=== PATIENT | female | born 1985 | race Caucasian/White ===

== ENCOUNTER 2018-05-14 18:22 | Emergency (ER) | payer MEDICAID ==
[~2018-05-14] VITALS: Ht 160 cm; Wt 88.9 kg
[2018-05-14 18:33] VITALS: BP 114/71
[2018-05-14] MEDS ORDERED: KETOROLAC 30 MG/ML VIAL IM ONE (20:00)
[2018-05-14] MEDS ORDERED: HYDROcodone/APAP 5/325 MG 1 TAB TAB PO ONE (20:40)
[2018-05-14] MEDS ORDERED: LIDOCAINE MPF 1% 5mL VIAL INJ ONE (20:45)
[2018-05-14] MEDS ORDERED: LIDOCAINE MPF 1% - 5 mL VIAL 5 ML ONE (20:47)
[2018-05-14 22:12] VITALS: BP 114/73
== END 2018-05-14 22:16 | disposition home or self-care (01) ==
LOC: MED 18:22
DX: S93.114A Dislocation of interphalangeal joint of right lesser toe(s), initial encounter (principal); W51.XXXA Accidental striking against or bumped into by another person, initial encounter; Y93.89 Activity, other specified; Y92.89 Other specified places as the place of occurrence of the external cause; Y99.8 Other external cause status
CPT/HCPCS: 28660; 73660; 96372; 99284; J1885; J2001; Q0092

== ENCOUNTER 2018-08-07 10:14 | Emergency (ER) | payer MEDICAID ==
[~2018-08-07] VITALS: Ht 160 cm; Wt 95.9 kg
[2018-08-07 10:26] VITALS: BP 108/69
[2018-08-07] MEDS ORDERED: NACL 0.9% 1,000 ML IV ONE (10:55)
[2018-08-07 11:00] LABS: BASOPHILS # (AUTO) 0.1 K/uL (0.00-0.22); BASOPHILS % (AUTO) 0.5 % (0.0-2.0); EOSINOPHILS # (AUTO) 0.2 K/uL (0-0.4); EOSINOPHILS % (AUTO) 1.5 % (0.0-4.0); HEMATOCRIT 33.2 % (36-48); HEMOGLOBIN 10.6 g/dL (12.0-16.0); LYMPHOCYTES # (AUTO) 3.3 K/uL (2.5-16.5); LYMPHOCYTES % (AUTO) 27.1 % (20.5-51.1); MEAN CORPUSCULAR HEMOGLOBIN 25 pg (27-31); MEAN CORPUSCULAR HGB CONC 32 g/dL (33-37); MEAN CORPUSCULAR VOLUME 79.2 fL (80-94); MONOCYTES # (AUTO) 0.7 K/uL (0.8-1.0); MONOCYTES % (AUTO) 6.2 % (1.7-9.3); NEUTROPHILS # (AUTO) 7.8 K/uL (1.8-7.7); NEUTROPHILS % (AUTO) 64.7 % (42.2-75.2); PLATELET COUNT (AUTO) 432 K/uL (140-450); RED BLOOD CELL COUNT(AUTO) 4.19 MIL/uL (4.20-5.40); RED CELL DISTRIBUTION WIDTH 14.9 % (11.6-13.7)
[2018-08-07 11:25] LABS: ALBUMIN 3.4 g/dL (3.4-5.0); ANION GAP 12.5 (8-16); CARBON DIOXIDE 25.1 mmol/L (21-32); CREATININE 0.6 mg/dL (0.6-1.3); POTASSIUM 3.6 mmol/L (3.5-5.1); TOTAL BILIRUBIN 0.4 mg/dL (0.0-1.0)
[2018-08-07 12:57] VITALS: BP 114/71
== END 2018-08-07 12:57 | disposition home or self-care (01) ==
LOC: MED 10:14
DX: T62.8X1A Toxic effect of other specified noxious substances eaten as food, accidental (unintentional), initial encounter (principal); Y92.89 Other specified places as the place of occurrence of the external cause
CPT/HCPCS: 36415; 80053; 85025; 96360; 99284; J7030

== ENCOUNTER 2019-01-15 10:34 | Emergency (ER) | payer MEDICAID, OTHER ==
[~2019-01-15] VITALS: Ht 160 cm; Wt 98.5 kg
--- NOTE | 2019-01-15 10:40 | NUR ---
Patient ambulated to bed 5. RN evaluating patient at bedside.
[2019-01-15 10:43] VITALS: BP 134/76
[2019-01-15] MEDS ORDERED: ACET-2619 PO (10:47)
--- NOTE | 2019-01-15 10:47 | NUR ---
33 Y FEMALE BIB FAMILY C/O SORE THROAT, RUNNY NOSE, CONGESTION, NON-PRODUCTIVE COUGH, HEADACHE. PAIN 10/10. +REDNESS, -SWELLING IN THROAT. DENIES FEVER. PER PT, FLU-LIKE SYMPTOMS STARTED LAST NIGHT. BED IS DOWN, LOCKED, BED RAIL X 1, ERMD NOTIFIED. HX-NONE MED-TYLENOL
--- NOTE | 2019-01-15 10:49 | NUR ---
UNABLE TO COLLECT A URINE AT THIS TIME
--- NOTE | 2019-01-15 11:05 | NUR ---
Dr. Martino evaluating patient at bedside.
[2019-01-15] MEDS ORDERED: KETOROLAC 60 MG/2 ML VIAL IM ONE (11:10)
[2019-01-15] MEDS ORDERED: CLINDAMYCIN 600 MG/4 ML VIAL IM ONE (11:10)
[2019-01-15] MEDS ORDERED: DEXAMETHASONE 10 MG/ML VIAL IM ONE (11:10)
[2019-01-15 13:00] VITALS: BP 134/76
--- NOTE | 2019-01-15 13:10 | NUR ---
PT LEFT WITHOUT DISCHARGE INSTRUCTIONS
--- NOTE | 2019-01-15 13:16 | NUR ---
DISCHARGE COMPLETED BY RODOLFO DELVALLE
--- NOTE | 2019-01-15 13:16 | NUR ---
Patient discharged with v/s stable. Written and verbal after care instructions given and explained. Patient verbalized understanding. Ambulatory with steady gait. All questions addressed prior to discharge. Advised to follow up with PMD.
== END 2019-01-15 13:16 | disposition home or self-care (01) ==
LOC: MED 10:34
DX: J03.90 Acute tonsillitis, unspecified (principal); Z79.899 Other long term (current) drug therapy
CPT/HCPCS: 81025; 96372; 99283; J1100; J1885; J3490

== ENCOUNTER 2019-04-08 08:58 | Emergency (ER) | payer OTHER ==
[~2019-04-08] VITALS: Ht 160 cm; Wt 88.5 kg
[~2019-04-08 08:58] MED LIST: ACET-2619 PO
[2019-04-08 09:00] VITALS: BP 117/64
--- NOTE | 2019-04-08 09:00 | NUR ---
to bed # 09 ambulatory
--- NOTE | 2019-04-08 09:00 | NUR ---
BIB SELF. AAO X4 RIGHT 5TH TOE PAIN AND SWELLING S/P ACCIDENTALLY KICKED BY WHILE SLEEPING X 30 MINS AGO. PT STATES 5/10 PAIN. PT STATES HX OF FRACTURE TO RIGHT 5TH TOE. +CMS NOTED. STEADY GAIT. HOB UP. BED SIDE RAILS UP X1. ON LOW BED POSITION,LOCKED. ER TO EVALUATE PT.
--- NOTE | 2019-04-08 09:30 | NUR ---
DR MCDANIEL AT BEDSIDE FOR PT EVAL
[2019-04-08 09:49] VITALS: BP 115/66
== END 2019-04-08 09:49 | disposition home or self-care (01) ==
LOC: MED 08:58
DX: S90.121A Contusion of right lesser toe(s) without damage to nail, initial encounter (principal); Z79.899 Other long term (current) drug therapy; W50.1XXA Accidental kick by another person, initial encounter; Y93.89 Activity, other specified; Y92.89 Other specified places as the place of occurrence of the external cause; Y99.8 Other external cause status
CPT/HCPCS: 99283

== ENCOUNTER 2019-04-19 08:29 | Emergency (ER) | payer OTHER ==
[~2019-04-19] VITALS: Ht 160 cm; Wt 96.2 kg
[2019-04-19 08:35] VITALS: BP 115/69
--- NOTE | 2019-04-19 08:40 | NUR ---
PT AMBULATE TO ER BED 04
--- NOTE | 2019-04-19 08:47 | NUR ---
PT BIB SELF C/O BODY ACHES, SORE THROAT, N/V, AND FEVER X 2 DAYS. ABD IS ROUND, SOFT, NON TENDER, ACTIVE BS X4, NO VOMITING NOTED SINCE ARRIVAL IN ER. RR EVEN AND UNLABORED, BL BS CLEAR THROUGHOUT. PT LAYING IN BED, POSITIONED TO COMFORT.
[2019-04-19 08:56] LABS: APPEARANCE,URINE SL CLOUDY (CLEAR); BILIRUBIN,URINE 1+ (NEGATIVE); BLOOD, URINE 3+ (NEGATIVE); COLOR,URINE YELLOW (YELLOW); LEUKOCYTE ESTERASE ,URINE NEGATIVE (NEGATIVE); NITRITE, URINE NEGATIVE (NEGATIVE); PH,URINE 8.5 (5.0-9.0); UGLUCOSE NEGATIVE (NEGATIVE)
[2019-04-19] MEDS ORDERED: PROMETHAZINE 25 MG/ML VIAL IM ONE (09:00)
[2019-04-19] MEDS ORDERED: hydrOXYzine HCL 25 MG TAB PO ONE (09:00)
[2019-04-19] MEDS ORDERED: KETOROLAC 60 MG/2 ML VIAL IM ONE (09:00)
[2019-04-19 09:02] LABS: BARBITURATE, URINE NEG. ng/ml (NEG <=200); BENZODIAZEPINE, URINE NEG. ng/mL (NEG <=200); CANNABINOID, URINE POS. ng/mL (NEG <=50); COCAINE, URINE NEG. ng/mL (NEG <=300); OPIATE, URINE NEG. ng/mL (NEG <=2000); PHENCYCLIDINE SCREEN,URINE NEG. ng/mL (NEG <=25)
[2019-04-19 09:09] LABS: RBC,URINE TOO NUMEROUS TO COUN /HPF (0-5)
--- NOTE | 2019-04-19 09:12 | NUR ---
Received report from MOOK Galvan. Will resume care at this time.
--- NOTE | 2019-04-19 09:46 | NUR ---
Patient is resting in bed. Vital Signs within normal limits. Respirations even and unlabored.
[2019-04-19] MEDS ORDERED: cefTRIAXone 1,000 MG in LIDOCAINE 1% ***ER ONLY *** 2.1 ML IM ONE (10:35)
[2019-04-19] MEDS ORDERED: cefTRIAXone 1,000 MG VIAL ONE (11:02)
[2019-04-19] MEDS ORDERED: LIDOCAINE MPF 1% - 5 mL VIAL 5 ML ONE (11:03)
[2019-04-19 13:19] VITALS: BP 112/66
--- NOTE | 2019-04-19 13:20 | NUR ---
Patient discharged with v/s stable. Written and verbal after care instructions given and explained. Patient alert, oriented and verbalized understanding of instructions. Ambulatory with steady gait. All questions addressed prior to discharge. ID band removed. Patient advised to follow up with PMD. Rx of Levaquin and Compazine given. Patient educated on indication of medication including possible reaction and side effects. Opportunity to ask questions provided and answered.
== END 2019-04-19 13:20 | disposition home or self-care (01) ==
LOC: MED 08:29
DX: N39.0 Urinary tract infection, site not specified (principal); Z79.899 Other long term (current) drug therapy
CPT/HCPCS: 80305; 81001; 81025; 87086; 96372; 99283; J0696; J1885; J2001; J2550

== ENCOUNTER 2019-10-09 13:45 | Emergency (ER) | payer OTHER ==
[~2019-10-09] VITALS: Ht 160 cm; Wt 87.3 kg
[2019-10-09 13:51] VITALS: BP 111/71
[2019-10-09] MEDS ORDERED: ACETAMINOPHEN EXTRA STRENGTH 500 MG TAB PO ONE (13:55)
--- NOTE | 2019-10-09 13:57 | NUR ---
PT TO BED 5 WITH STEADY GAIT
[2019-10-09] MEDS ORDERED: NACL 0.9% 1,000 ML IV SCH (14:08)
[2019-10-09] MEDS ORDERED: KETOROLAC 15 MG/ML VIAL IVP ONE (14:10)
[2019-10-09] MEDS ORDERED: DEXAMETHASONE 10 MG/ML VIAL IVP ONE (14:10)
--- NOTE | 2019-10-09 14:30 | NUR ---
INFLUENZA AND STREP SWABS COLLECTED
[2019-10-09] MEDS ORDERED: cefTRIAXone 1,000 MG VIAL ONE (14:46)
--- NOTE | 2019-10-09 15:22 | NUR ---
C/O BODYACHES, THROAT PAIN, FEVER, COUGH X YESTERDAY
[2019-10-09 15:57] LABS: APPEARANCE,URINE CLEAR (CLEAR); BILIRUBIN,URINE NEGATIVE (NEGATIVE); BLOOD, URINE 3+ (NEGATIVE); COLOR,URINE YELLOW (YELLOW); LEUKOCYTE ESTERASE ,URINE NEGATIVE (NEGATIVE); NITRITE, URINE NEGATIVE (NEGATIVE); UGLUCOSE NEGATIVE (NEGATIVE)
[2019-10-09 16:22] LABS: RBC,URINE 20-50 /HPF (0-5); WBC,URINE NONE SEEN /HPF (0-5)
[2019-10-09 17:05] VITALS: BP 111/71
--- NOTE | 2019-10-09 17:06 | NUR ---
Patient discharged with v/s stable. Written and verbal after care instructions given and explained. Patient alert, oriented and verbalized understanding of instructions. Ambulatory with steady gait. All questions addressed prior to discharge. ID band removed. Patient advised to follow up with PMD. Rx of penicillin vk/ tylenol es/motrin given. Patient educated on indication of medication including possible reaction and side effects. Opportunity to ask questions provided and answered.
== END 2019-10-09 17:06 | disposition home or self-care (01) ==
LOC: MED 13:45
DX: J02.0 Streptococcal pharyngitis (principal); Z79.899 Other long term (current) drug therapy
CPT/HCPCS: 81001; 87081; 87804; 96365; 96375; 99283; J0696; J1100; J1885; J7060

== ENCOUNTER 2019-10-24 18:58 | Emergency (ER) | payer OTHER ==
[~2019-10-24] VITALS: Ht 160 cm; Wt 88.9 kg
[2019-10-24 19:17] VITALS: BP 128/69
--- NOTE | 2019-10-24 19:23 | NUR ---
PT AMBULATED TO THE LOBBY WITH VSS.
--- NOTE | 2019-10-24 20:06 | NUR ---
AMBULATED TO ER BED 4
--- NOTE | 2019-10-24 20:15 | NUR ---
34 YEAR OLD FEMALE COMPLAINS OF 8/10 THROBBING RIGHT FOOT PAIN ON THE 5TH TOE. PATIENT STATES THAT SHE WAS WALKING AND STUBBED HER TOE ON FURNITURE. PATIENT SAYS FOOT FEELS NUMB, LIMITED ROM. PATIENT ALERT AND ORIENTED, BREATHING EVEN AND UNLABORED, SKIN WARM AND DRY. BED IN LOWEST POSITION, LOCKED, BED RAIL UPX1. PMH - DENIES MEDICATIONS - DENIES ALLERGIES - NKA
--- NOTE | 2019-10-24 20:40 | NUR ---
PATIENT STATES THAT SHE WANTS TO LEAVE BECAUSE HER DAUGHTER IS HERE TO [employer] OPER[employer] AND HAS TO GET TO WORK
[2019-10-24 20:44] VITALS: BP 128/69
--- NOTE | 2019-10-24 20:44 | NUR ---
Patient discharged with v/s stable. Written and verbal after care instructions ABOUT CONTUSIONS given and explained. Patient alert, oriented and verbalized understanding of instructions. Ambulatory with steady gait. All questions addressed prior to discharge. ID band removed. Patient advised to follow up with PMD. Rx of ACETAMINOPHEN given. Patient educated on indication of medication including possible reaction and side effects. Opportunity to ask questions provided and answered.
== END 2019-10-24 20:44 | disposition home or self-care (01) ==
LOC: MED 18:58
DX: S90.121A Contusion of right lesser toe(s) without damage to nail, initial encounter (principal); Z91.018 Allergy to other foods; Z79.899 Other long term (current) drug therapy; W22.8XXA Striking against or struck by other objects, initial encounter; Y93.89 Activity, other specified; Y92.89 Other specified places as the place of occurrence of the external cause; Y99.8 Other external cause status
CPT/HCPCS: 73660; 99283